=== PATIENT | female | born 1965 | race Caucasian/White ===

== ENCOUNTER 2017-12-08 05:39 | Day surgery (SDC) | payer OTHER ==
[2017-12-08] MEDS ORDERED: LIDOCAINE 1% 2 ML INJ ID PRN (05:54)
[2017-12-08] MEDS ORDERED: LR 1,000 ML IV ONE (05:54)
[2017-12-08] MEDS ORDERED: MIDAZOLAM 2 MG/2 ML VIAL IVP ONE (06:54)
--- NOTE | 2017-12-08 06:54 | PDANEPAE ---
ANE History of Present Illness excision of facial bone ANE Past Medical History - Cardiovascular History Hx Hypertension: No Hx Arrhythmias: No Hx Chest Pain: No Hx Coronary Artery / Peripheral Vascular Disease: No Hx CHF / Valvular Disease: No Hx Palpitations: No - Pulmonary History Hx COPD: No Hx Asthma/Reactive Airway Disease: No Hx Recent Upper Respiratory Infection: No Hx Oxygen in Use at Home: No Hx Sleep Apnea: No Sleep Apnea Screening Result - Last Documented: Negative - Neurologic History Hx Cerebrovascular Accident: No Hx Seizures: No Hx Dementia: No - Endocrine History Hx Diabetes: No - Renal History Hx Renal Disorders: No - Liver History Hx Hepatic Disorders: No - Neurological & Psychiatric Hx Hx Neurological and Psychiatric Disorders: No - Cancer History Hx Cancer: No - Congenital Disorder History Hx Congenital Disorders: No - GI History Hx Gastrointestinal Disorders: No - Other Health History Other Health History: NONE - Chronic Pain History Chronic Pain: Yes (LOWER BACK, ACROILYITIS INFLAMATION AROUND L5) - Surgical History Prior Surgeries: COLONOSCOPY,. SI JOINT INJECTION ANE Review of Systems Review of systems is: negative Review of Systems: - Exercise capacity METS (RN): 4 METS ANE Patient History - Allergies Allergies/Adverse Reactions: No Known Allergies Allergy (Unverified 11/20/17 12:50) - Home Medications Home medications: home medication list seen and reviewed Home Medications: Humira Pen 11/20/17 [Last Taken Unknown] - NPO status NPO Since - Liquids (Date): 12/07/17 NPO Since - Liquids (Time): 22:00 NPO Since - Solids (Date): 12/07/17 NPO Since - Solids (Time): 22:30 - Anes Hx Anes Hx: no prior problems - Smoking Hx Smoking Status: Never smoked - Family Anes Hx Family Anes Hx: none Family Hx Anesthesia Complications: NONE ANE Labs/Vital Signs - Vital Signs Vital Signs: reviewed preoperatively; see RN documention for details Blood Pressure: 121/85 Heart Rate: 53 Respiratory Rate: 16 O2 Sat (%): 97 Height: 165.1 cm Weight: 65.771 kg ANE Physical Exam - Airway Neck exam: FROM Mallampati Score: Class 1 Mouth exam: normal dental/mouth exam - Pulmonary Pulmonary: no respiratory distress - Cardiovascular Cardiovascular: regular rate and rhythym - ASA Status ASA Status: I ANE Anesthesia Plan Anesthesia Plan: general endotracheal anesthesia
[2017-12-08] MEDS ORDERED: ceFAZolin 2 GM/DEXTROSE 100 ML IV ONE (06:55)
--- NOTE | 2017-12-08 06:57 | PDHPUP ---
History & Physical Update H&P update statement: This history and physical update is based on an assessment of the patient which was completed after admission or registration (within 24 hours), but prior to the surgery/procedure. H&P update: H&P reviewed & patient examined, no change in patient's condition since H&P completed
[2017-12-08] MEDS ORDERED: BACITRACIN ZINC 14.2 GM OINTTUBE TP ONE (07:06)
[2017-12-08] MEDS ORDERED: LIDO/EPI 1% **for epidural** 30 ML SDV ONE (07:07)
[2017-12-08] MEDS ORDERED: DEXAMETHASONE 4 MG/ML VIAL ONE (07:12)
[2017-12-08] MEDS ORDERED: fentaNYL 250 MCG/5 ML INJ ONE (07:12)
[2017-12-08] MEDS ORDERED: ONDANSETRON 4 MG/2 ML VIAL ONE (07:12)
[2017-12-08] MEDS ORDERED: LIDOCAINE 2% 100 MG/5 ML SYR ONE (07:12)
[2017-12-08] MEDS ORDERED: ROCURONIUM 50 MG/5 ML VIAL ONE (07:12)
[2017-12-08] MEDS ORDERED: PROPOFOL 200 MG/20 ML VIAL ONE (07:13)
[2017-12-08] MEDS ORDERED: ePHEDrine SULFATE 25 MG/5 ML SYR ONE (07:44)
[2017-12-08] MEDS ORDERED: ACETAMINOPHEN 500 MG TAB PO PRN (08:11)
[2017-12-08] MEDS ORDERED: NALOXONE HCL 0.4 MG/ML INJ IVP PRN (08:11)
[2017-12-08] MEDS ORDERED: MEPERIDINE 25 MG/0.5 ML AMP IVP PRN (08:11)
[2017-12-08] MEDS ORDERED: DEXAMETHASONE 4 MG/ML VIAL IVP PRN (08:11)
[2017-12-08] MEDS ORDERED: PROMETHAZINE HCL 25 MG/ML INJ IVP PRN (08:11)
[2017-12-08] MEDS ORDERED: fentaNYL 100 MCG/2 ML INJ IVP PRN (08:11)
[2017-12-08] MEDS ORDERED: oxyCODONE IR 5 MG TAB PO PRN (08:11)
[2017-12-08] MEDS ORDERED: ONDANSETRON 4 MG/2 ML VIAL IVP PRN (08:11)
[2017-12-08] MEDS ORDERED: HYDROCODONE/APAP 5/325 TAB PO PRN (08:11)
--- NOTE | 2017-12-08 08:12 | POSTANESTH ---
Post Anesthetic Evaluation Cardiovascular Status: Normal, Stable, Similar to Pre-Op Cond Respiratory Status: Normal, Stable, Similar to Pre-op Cond. Level of Consciousness/Mental Status: Can Participate in Eval, Mildly Sleepy, Arousable Pain Control: Adequate, Prn Tx Ordered Nausea/Vomiting Control: Adequate, Prn Tx Ordered Complications Possibly Related to Anesthesia: None Noted
[2017-12-08] MEDS ORDERED: GLYCOPYRROLATE 0.2 MG/1 ML VIAL ONE (08:17)
[2017-12-08] MEDS ORDERED: NEOSTIGMINE METHYLSULFATE 10 MG/10 ML MDV ONE (08:17)
--- NOTE | 2017-12-08 08:29 | POSTOPPROG ---
Post Op Note Date of Operation: 12/08/17 Surgeon: Karl Krause Anesthesiologist: Isidro Anesthesia: GET(General Endotracheal) Pre-op Diagnosis: Forehead lesion Post-op Diagnosis: Forehead lesion Indication: Forehead lesion Procedure: Endoscopic removal of forehead lesion Findings: Forehead lesion Inf/Abcess present in the surg proc area at time of surgery?: No Depth: Deep Incisional (Fascial) EBL: Minimal Complications: none Specimen(s): Lesion
[2017-12-08] MEDS ORDERED: HYDROCODONE/APAP 5/325 TAB ONE (09:07)
[2017-12-08 09:38] VITALS: BP 109/74
--- NOTE | 2017-12-30 20:05 | GOP ---
[f rep st] OPERATIVE REPORT DATE OF OPERATION: 12/08/2017 SURGEON: Karl Krause MD ANESTHESIA: General. PREOPERATIVE DIAGNOSIS: Left forehead mass. POSTOPERATIVE DIAGNOSIS: Left forehead mass. PROCEDURE PERFORMED: Endoscopic removal of forehead lesion. FINDINGS: 1.5 cm diameter raised bony lesion on the left forehead, attached to the frontal bone. SPECIMENS: Excised bony lesion. ESTIMATED BLOOD LOSS: 5 mL. INDICATIONS: Patient was seen in outpatient clinic and had been followed for an enlarged bony mass o n her forehead. Given her history and findings, she was determined to be an appropriate candidate fo r the above-stated procedure. The risks, benefits, and alternatives to the procedure were explained at length to the patient, who stated she understood and agreed. DESCRIPTION OF PROCEDURE: The patient was brought to the operating room by Anesthesiology and placed on the operating table. Once the appropriate level of anesthesia was achieved, the patient was prep ped and draped in the usual fashion. Operating table was turned 90 degrees. The bony mass was palpa zehra. The incision was created. A supra-tracheal incision was created at the left scalp. There was a 1.5 cm incision created with a 15 blade. Dissection continued with Bovie electrocautery until the subperiosteal plane was identified. A [place] elevator was then used to dissect inferiorly along the f rontal bone in a subperiosteal fashion until the mass was encountered. Subperiosteal elevation was c ompleted circumferentially around the mass. Along with the Fitzgerald suction, a zero degree endoscope was passed through the incision and used to visualize the mass. The suction was used to elevate the soft tissues so the mass could be identified. The suction was removed and an osteotome was passed th rough the incision and used to remove the superficial aspect of the bony lesion. This was collected and sent for final pathology. A Sumex drill with a 6 mm bur was then passed through the incision. U nder endoscopic visualization, the bone underlying the bony mass was drilled. This was drilled to wh ere there was a slight indentation and no further elevated bone could be visualized. The drill was w ithdrawn, the site was irrigated with copious normal saline. The video endoscope was used to visuali ze the resection site. No further bony lesions were identified. The scope was withdrawn and the sca lp was reapproximated with four 4-0 chromic interrupted sutures. The patient tolerated the procedure well, and was extubated in the operating room prior to being transferred in good condition to the stanesthesia care unit. COMPLICATIONS: None. /[id number]/MODL
== END 2017-12-08 09:57 | disposition home or self-care (01) ==
LOC: FSGY 05:39
PROVIDERS: ATTEND Otolaryngology
PROC: 0NB Head and Facial Bones, Excision (ICD-10-PCS; principal; 2017-12-08 07:15)
DX: D16.4 Benign neoplasm of bones of skull and face (principal)
CPT/HCPCS: J0690; J1100; J2001; J2250; J2405; J2704; J3010

== ENCOUNTER → 2018-08-17 | Outpatient (CLI) | payer OTHER | LOC: BMCIMAGING 09:35 | PROVIDERS: ATTEND Internal Medicine Rheumatology | DX: M47.898 Other spondylosis, sacral and sacrococcygeal region (principal); G89.29 Other chronic pain ==